=== PATIENT | female | born 1990 | race Caucasian/White ===

== ENCOUNTER → 2025-02-21 | Outpatient (CLI) | payer MEDICAID | END | disposition home or self-care (01) | LOC: LAB 13:49 | DX: Z79.899 Other long term (current) drug therapy (principal) ==

== ENCOUNTER → 2025-04-04 | Outpatient (CLI) | payer MEDICAID | END | disposition home or self-care (01) | LOC: CARD 13:49 | DX: Z79.899 Other long term (current) drug therapy (principal) ==